=== PATIENT | female | born 1930 | race Hispanic/Latino ===

== ENCOUNTER 2016-09-27 16:20 | Emergency (ER) | payer OTHER, MEDICARE ==
[2016-09-27] MEDS ORDERED: ONDANSETRON ODT 4 MG TAB ONE (17:22)
[2016-09-27] MEDS ORDERED: ACETAMINOPHEN 325 MG TAB ONE (19:25)
== END 2016-09-27 20:40 | disposition home or self-care (01) ==
LOC: ER 16:20
DX: S06.0X0A Concussion without loss of consciousness, initial encounter (principal); S16.1XXA Strain of muscle, fascia and tendon at neck level, initial encounter; V49.49XA Driver injured in collision with other motor vehicles in traffic accident, initial encounter; Y92.488 Other paved roadways as the place of occurrence of the external cause; Z79.899 Other long term (current) drug therapy; E03.9 Hypothyroidism, unspecified
CPT/HCPCS: 70450; 72125